=== PATIENT | female | born 1995 | race Caucasian/White ===

== ENCOUNTER → 2020-11-19 | Outpatient (REF) ==
[2020-11-20 06:11] LABS: RUBEOLA IgG ANTIBODY 90.9 AU/mL (Immune >16.4)
== END ==
LOC: M LAB 09:36
PROVIDERS: ATTEND Nurse Practitioner Family
DX: Z00.00 Encounter for general adult medical examination without abnormal findings (principal)

== ENCOUNTER 2021-04-29 17:45 | Inpatient (IN) | payer OTHER, SELFPAY ==
[~2021-04-29] VITALS: Ht 172.7 cm; Wt 78.5 kg
[2021-04-29] MEDS ORDERED: NS 1,000 ML IV ONE ×2 (17:50→19:50)
[2021-04-29] MEDS ORDERED: ONDANSETRON 4MG/2ML VIAL IV ONE ×2 (18:05→21:55)
--- NOTE | 2021-04-29 18:16 | REP ---
INDICATION: DKA COMPARISON: None. TECHNIQUE: Portable AP view of the chest FINDINGS: The mediastinum and cardiac silhouette are within normal limits for portable technique. The lung melendrez are clear without acute consolidation, effusion, or pneumothorax. Skeletal structures are intact. IMPRESSION: No acute cardiopulmonary process appreciated. <Electronically signed by Sebastian Valle > 04/29/21 [id number]
[2021-04-29 18:27] LABS: BASO % 0.2 % (0.0-1.0); EOS % 0.2 % (0.0-3.0); HEMATOCRIT 45.6 % (36.0-47.0); HEMOGLOBIN 15.1 g/dl (12.0-15.5); LYMPH # 0.7 10^3/uL (1.5-5.0); LYMPH % 5.7 % (24.0-44.0); MEAN CORPUSCULAR HEMOGLOBIN 30.1 pg (27.0-33.0); MEAN CORPUSCULAR HGB CONC 33.1 g/dl (32.0-36.5); MONO # 0.6 10^3/uL (0.0-0.8); MONO % 5.2 % (2.0-8.0); NEUTROPHILS # 10.8 10^3/uL (1.5-8.5); NEUTROPHILS % 88.2 % (36.0-66.0); PLATELET COUNT, AUTOMATED 239 10^3/uL (150-450); RED BLOOD COUNT 5.01 10^6/uL (4.00-5.40); WHITE BLOOD COUNT 12.2 10^3/uL (4.0-10.0)
[2021-04-29 18:53] LABS: AMPHETAMINES LEVEL URINE NEGATIVE (NEGATIVE); BARBITURATES URINE NEGATIVE (NEGATIVE); BENZODIAZEPINES URINE POSITIVE (NEGATIVE); CANNABINOIDS URINE NEGATIVE (NEGATIVE); COCAINE METABOLITE URINE NEGATIVE (NEGATIVE); METHADONE URINE NEGATIVE (NEGATIVE); OPIATES URINE NEGATIVE (NEGATIVE); PHENCYCLIDINE URINE NEGATIVE (NEGATIVE)
[2021-04-29 19:02] LABS: HEMOGLOBIN A1c 10.2 %
--- NOTE | 2021-04-29 19:07 | ECGEPIP ---
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
[2021-04-29 19:48] LABS: OSMOLALITY SERUM 295 MOSM/KG (275-295)
[2021-04-29] MEDS ORDERED: METOCLOPRAMIDE INJ 10MG/2ML VIAL (J2765 PER 1) IV ONE (19:50)
[2021-04-29 21:28] LABS: ALT/SGPT 17 U/L (12-78)
[2021-04-29 21:29] LABS: ALBUMIN 3.7 GM/DL (3.2-5.2); BILIRUBIN,DIRECT 0.1 MG/DL (0.0-0.2); BILIRUBIN,TOTAL 0.4 MG/DL (0.2-1.0); CK-MB VALUE MASS < 1.0 NG/ML (<3.6); CPK CREATINE PHOSPHOKINASE 43 U/L (26-192); ETHYL ALCOHOL (ETHANOL) < 0.003 % (0.000-0.010); LIPASE 32 U/L (73-393); MAGNESIUM LEVEL 1.6 MG/DL (1.8-2.4); MB/CK RELATIVE INDEX 2.33 (< OR =4); TROPONIN I < 0.02 NG/ML (< 0.10)
[2021-04-29 21:43] LABS: ACETONE/KETONE 5.74 MG/DL (<2.81)
[2021-04-29] MEDS ORDERED: PROMETHAZINE INJ 25 MG/ML VIAL (J2550) IV ONE (22:20)
--- NOTE | 2021-04-29 23:49 | HPEPDOC ---
[facility] Medical History & Physical Date of Admission Apr 29, 2021 Date of Service: Apr 29, 2021 History and Physical CHIEF COMPLAINT: Nausea and vomiting HISTORY OF PRESENT ILLNESS: 26-year-old female history of type 1 diabetes chief complaint is nausea and vomiting. Patient tells me that she been having lots of nausea vomiting and diarrhea all day and she believes she might have eaten something bad she lives with her son who is asymptomatic. She called her friend while she was on the toilet telling her she needs to come to the hospital and she tells me that by the time EMS arrived she was found unresponsive on the ground it was unclear EMS felt she had seizure-like activity administered Versed and became apneic when this all had resolved by the time she arrived in the emergency department. At the time that I saw her she was awake and alert and able to answer all my questions appropriately. She denies history of seizures in the past tells me that her sister has a history of pseudoseizures. 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 Patient endorses that prior to passing out to the floor she felt lightheaded as though she's going to pass out which is why she called her friend to call EMS. She was given Zofran, Reglan, Phenergan in the emergency department for nausea and vomiting with some relief. Patient will be admitted for IV fluid hydration and medical management. On review of systems she endorses mild abdominal pain which is improved now. She denies any fevers or chills. Denies any trouble breathing or shortness of breath. Denies any palpitations or chest pain. Denies dysuria or urinary dale quency. PAST MEDICAL/SURGICAL HISTORY: Type 1 diabetes Mouth skin graft relating to braces SOCIAL HISTORY: Denies alcohol use Denies tobacco use Denies illicit drug use FAMILY HISTORY: Reviewed and none contributory to this admission ALLERGIES: Please see below. REVIEW OF SYSTEMS: 10 point review of systems complete all negative otherwise stated in HPI HOME MEDICATIONS: Please see below. PHYSICAL EXAMINATION: Constitutional: Awake and alert, in no apparent distress ENT: Sclera are clear. Mucosa is moist. Respiratory: Lungs CTA bilaterally. No respiratory distress. No use of accesso ry muscles. Cardiovascular: RRR S1 and S2 are normal, no murmur Gastrointestinal: Abdomen is soft, non distended, non tender, BS present. Musculoskeletal: No lower extremity edema. Neurologic: No focal neurological deficit. Mental Status: A&O x3, normal affect Skin: No visible rashes LABORATORY DATA: See below. IMAGING: See chart MICROBIOLOGY: Please see below. ASSESSMENT/PLAN 26-year-old female history of type 1 diabetes chief complaint is nausea and vomiting and diarrhea Patient will be admitted for IV fluid hydration and medical management. # intractable N/V/D: possibly gastroenteritis vs relating to uncontrolled blood sugar. GI panel. Scheduled Reglan IV. Zofran IV PRN. IVF NS @200. # DM1: Uncontrolled. +ketones urine. AG slightly increased. pH on vBG 7.47 on arrival. Requested ED ordered repeat ABG. ISS. Frequent Accu-Cheks. Hypoglycemic precautions. Resume Home dose levemir 32U BID and up-titrate as needed. # seizure like activity: suspected by EMS. No hx of seizures. No seizure like activity since being at hospital. less likely seizures, her episode of syncope sounds more like a vasovagal event on the toilet. Fu EEG. # UTI: denies dysuria. UA weakly positive. UCx pending. Will empirically treat with Rocephin until UCx results are back. She does have some leukocytosis. # Hypomagnesemia: relating to n/v. Replace. repeat Mg level. # DVT prophylaxis: Lovenox A Alfonsosef Hospitalist Vital Signs Vital Signs Date Time Temp Pulse Resp B/P (MAP) Pulse Ox O2 Delivery O2 Flow Rate FiO2 04/29/21 22:30 100 18 106/57 (73) 99 Nasal Cannula 2.0 04/29/21 20:24 98.0 Laboratory Data Labs 24H Laboratory Tests 2 04/29/21 18:01: Bedside Glucose (Misc Panel) 101 04/29/21 18:04: POC pH (Misc Panel) 7.479H, POC Base Excess (Misc Panel) -3.0L, POC Saturated Percent O2 (Misc) 100H, POC pO2 (Misc Panel) 170.0H, POC pCO2 (Misc Panel) 27.7L, POC HCO3 (Misc Panel) 20.6L, POC Total CO2 (Misc Panel) 21.0L 04/29/21 18:11: Immature Granulocyte % (Auto) 0.5, Neutrophils (%) (Auto) 88.2H, Lymphocytes (%) (Auto) 5.7L, Monocytes (%) (Auto) 5.2, Eosinophils (%) (Auto) 0.2, Basophils (%) (Auto) 0.2, Neutrophils # (Auto) 10.8H, Lymphocytes # (Auto) 0.7L, Monocytes # (Auto) 0.6, Eosinophils # (Auto) 0.0, Basophils # (Auto) 0.0, Nucleated Red Blood Cells % (auto) 0.0, Estimated Mean Plasma Glucose 246H, Hemoglobin A1c 10.2 04/29/21 18:15: POC Total CO2 (Misc Panel) 23.0, POC Glucose (Misc Panel) 117H, POC Sodium (Misc Panel) 143, POC Potassium (Misc Panel) 4.9, POC Chloride (Misc Panel) 106, POC Blood Urea Nitrogen (Misc Panel 25, POC Ionized Calcium (Misc Panel) 4.1L, POC Creatinine (Misc Panel) 0.3L, POC Hematocrit (Misc Panel) 46.0 04/29/21 18:20: Urine Color YELLOW, Urine Appearance CLOUDYH, Urine pH 5.0, Urine Specific [place] 1.027, Urine Protein 2+H, Urine Glucose (UA) NEGATIVE, Urine Ketones 2+H, Urine Blood NEGATIVE, Urine Nitrite NEGATIVE, Urine Bilirubin NEGATIVE, Urine Urobilinogen 0.2, Urine Leukocyte Esterase TRACEH, Urine WBC (Auto) 9H, Urine RBC (Auto) 0, Urine Hyaline Casts (Auto) 0, Urine Bacteria (Auto) NEGATIVE, Urine Squamous Epithelial Cells 5, Urine Mucus (Auto) LARGE, Urine Sperm (Auto) , Urine Opiates Screen NEGATIVE, Urine Methadone Screen NEGATIVE, Urine Barbiturates Screen NEGATIVE, Urine Phencyclidine Screen NEGATIVE, Urine Amphetamines Screen NEGATIVE, Urine Benzodiazepines Screen POSITIVEH, Urine Cocaine Metabolite Screen NEGATIVE, Urine Cannabinoids Screen NEGATIVE 04/29/21 18:22: POC Beta HCG, Quantitative < 5.0 04/29/21 19:07: Bedside Glucose (Misc Panel) 100 04/29/21 19:25: Osmolality 295, Phosphorus Level 3.0, Magnesium Level 1.6L, Total Bilirubin 0.4, Direct Bilirubin 0.1, Aspartate Amino Transf (AST/SGOT) 8, Alanine Aminotransferase (ALT/SGPT) 17, Alkaline Phosphatase 76, Total Creatine Kinase 43, Creatine Kinase MB < 1.0, Creatine Kinase MB Relative Index 2.33, Troponin I < 0.02, Total Protein 7.0, Albumin 3.7, Albumin/Globulin Ratio 1.1L, Lipase 32L, Ethyl Alcohol Level < 0.003, B-Hydroxybutyrate 5.74H CBC/BMP Laboratory Tests 04/29/21 18:11 Microbiology Microbiology 04/29/21 Urine Culture, Received Pending Allergies Coded Allergies: No Known Allergies (Unverified , 04/29/21) ADAM RUTHERFORD MD Apr 29, 2021 23:49
[2021-04-29] MEDS ORDERED: GLUCOSE 4GM CHEW TABLET PO PRN (23:55)
[2021-04-29] MEDS ORDERED: GLUCAGON INJ 1MG VIAL SC PRN (23:55)
[2021-04-30] MEDS ORDERED: ONDANSETRON 4MG/2ML VIAL IV PRN ×2 (00:15→17:00)
[2021-04-30] MEDS: MAG SULF 1GM/100ML (MAG RUN) 1 GM in IV 1 EA IV SCH ×2 (00:23→03:00)
[2021-04-30 00:29] LABS: VENOUS BASE EXCESS -4.3 (-2.0-2.0); VENOUS HCO3 19.7 MEQ/L (23.0-27.0); VENOUS O2 SATURATION 98.6 % (60.0-80.0); VENOUS PARTIAL PRESSURE O2 133.9 mmHg (30.0-50.0); VENOUS PH 7.394 UNITS (7.330-7.430); VENOUS TOTAL CO2 20.7 MEQ/L (24.0-28.0)
[2021-04-30] MEDS: NS 1,000 ML IV SCH ×4 (00:39→14:32)
[2021-04-30 01:08] LABS: RSV AMPLIFICATION NEGATIVE (NEGATIVE)
[2021-04-30] MEDS ORDERED: INSULADS SC (01:51)
[2021-04-30] MEDS ORDERED: HOME MED LIST COMPLETE! XX SCH (01:55)
[2021-04-30 02:30] VITALS: BP 106/58
[2021-04-30] MEDS: METOCLOPRAMIDE INJ 10MG/2ML VIAL (J2765 PER 1) IV SCH ×3 (03:00→14:33)
[2021-04-30 04:00] VITALS: BP 111/55
[2021-04-30] MEDS: cefTRIAXone SOD 1 GM in D5W MINI-BAG PLUS 50 ML IV SCH (04:00)
[2021-04-30] MEDS: ACETAMINOPHEN TAB 650MG DOSE (2X325MG) PO PRN ×2 (04:55→22:02)
[2021-04-30 05:02] LABS: HEMATOCRIT 38.5 % (36.0-47.0); MEAN CORPUSCULAR HEMOGLOBIN 30.3 pg (27.0-33.0); MEAN CORPUSCULAR HGB CONC 33.2 g/dl (32.0-36.5); PLATELET COUNT, AUTOMATED 187 10^3/uL (150-450); RED BLOOD COUNT 4.23 10^6/uL (4.00-5.40); WHITE BLOOD COUNT 3.8 10^3/uL (4.0-10.0)
[2021-04-30 05:07] LABS: HEMOGLOBIN 12.8 g/dl (12.0-15.5)
[2021-04-30 05:17] LABS: ALBUMIN 2.8 GM/DL (3.2-5.2); ALT/SGPT 18 U/L (12-78); BILIRUBIN,TOTAL 0.3 MG/DL (0.2-1.0); BLOOD UREA NITROGEN 16 MG/DL (7-18); CALCIUM LEVEL 7.3 MG/DL (8.5-10.1); CARBON DIOXIDE LEVEL 23 MEQ/L (21-32); CHLORIDE LEVEL 111 MEQ/L (98-107); CREATININE FOR GFR 0.45 MG/DL (0.55-1.30); GLOMERULAR FILTRATION RATE > 60.0 (>60); GLUCOSE, FASTING 150 MG/DL (70-100); MAGNESIUM LEVEL 2.4 MG/DL (1.8-2.4); POTASSIUM SERUM 3.5 MEQ/L (3.5-5.1); SODIUM LEVEL 144 MEQ/L (136-145); TOTAL PROTEIN 5.4 GM/DL (6.4-8.2)
[2021-04-30 08:00] VITALS: BP 106/56
[2021-04-30] MEDS: HumaLOG INSULIN (NovoLOG) PER UNIT SC SCH ×4 (08:12→20:17)
[2021-04-30] MEDS: ENOXAPARIN 40MG/0.4ML SYRINGE (J1650 PER 10MG) SC SCH (08:12)
[2021-04-30] MEDS ORDERED: LEVEMIR (INSULIN DETEMIR) 1 UNITS/0.01ML SC SCH (09:00)
[2021-04-30 11:00] VITALS: BP 99/60
--- NOTE | 2021-04-30 11:06 | IPNPDOC ---
Subjective Date Seen The patient was seen on 04/30/21. Subjective Chief Complaint/HPI No further vomiting overnight but continues to feel nauseous. She did have another loose bowel movement this morning. Does complain of some vague abdominal pain Objective Physical Examination General Exam: Positive: Alert, Cooperative, No Acute Distress Eye Exam: Positive: PERRLA, Conjunctiva & lids normal, EOMI; Negative: Sclera icteric ENT Exam: Positive: Atraumatic, Mucous membr. moist/pink, Pharynx Normal Neck Exam: Positive: Supple; Negative: JVD, thyromegaly Chest Exam: Positive: Clear to auscultation, Normal air movement Heart Exam: Positive: Rate Normal, Regular Rhythm, Normal S1, Normal S2; Negative: Murmurs, Rubs Abdomen Exam: Positive: Normal bowel sounds, Soft, Tenderness (Periumbilical region); Negative: Hepatospenomegaly Extremity Exam: Positive: Normal pulses; Negative: Clubbing, Cyanosis, Edema Assessment /Plan Assessment 26-year-old female history of type 1 diabetes chief complaint is nausea and vomiting and diarrhea. Patient was not in DKA. Her symptoms were thought to be related to gastroenteritis and she was admitted for IV fluids and symptom control. Intractable N/V/D: Likely gastroenteritis GI panel pending Continue IV fluid, Zofran, Reglan DM1 from the age of 12 years uncontrolled. A1c 10.2 No DKA though has ketonuria We will continue carb consistent diet and Levemir and lispro Episode of syncope at home while she was having a bowel movement as well as throwing up at the same time Vasovagal syncope As EMS noticed some seizure-like activity patient has been ordered an EEG which will get done while she is in the hospital Dirty UA with some dysuria Given ceftriaxone empirically will discontinue if urine cultures are negative Hypomagnesemia Replace Plan/VTE VTE Prophylaxis Ordered?: Yes VS, I&O, 24H, Fishbone Vital Signs/I&O Vital Signs Date Time Temp Pulse Resp B/P (MAP) Pulse Ox O2 Delivery O2 Flow Rate FiO2 04/30/21 08:00 97.2 91 14 106/56 (73) 96 Room Air 04/30/21 01:58 2.0 Laboratory Data 24H LABS Laboratory Tests 2 04/29/21 18:01: Bedside Glucose (Misc Panel) 101 04/29/21 18:04: POC pH (Misc Panel) 7.479H, POC Base Excess (Misc Panel) -3.0L, POC Saturated Percent O2 (Misc) 100H, POC pO2 (Misc Panel) 170.0H, POC pCO2 (Misc Panel) 27.7L, POC HCO3 (Misc Panel) 20.6L, POC Total CO2 (Misc Panel) 21.0L 04/29/21 18:11: Immature Granulocyte % (Auto) 0.5, Neutrophils (%) (Auto) 88.2H, Lymphocytes (%) (Auto) 5.7L, Monocytes (%) (Auto) 5.2, Eosinophils (%) (Auto) 0.2, Basophils (%) (Auto) 0.2, Neutrophils # (Auto) 10.8H, Lymphocytes # (Auto) 0.7L, Monocytes # (Auto) 0.6, Eosinophils # (Auto) 0.0, Basophils # (Auto) 0.0, Nucleated Red Blood Cells % (auto) 0.0, Estimated Mean Plasma Glucose 246H, Hemoglobin A1c 10.2 04/29/21 18:15: POC Total CO2 (Misc Panel) 23.0, POC Glucose (Misc Panel) 117H, POC Sodium (Misc Panel) 143, POC Potassium (Misc Panel) 4.9, POC Chloride (Misc Panel) 106, POC Blood Urea Nitrogen (Misc Panel 25, POC Ionized Calcium (Misc Panel) 4.1L, POC Creatinine (Misc Panel) 0.3L, POC Hematocrit (Misc Panel) 46.0 04/29/21 18:20: Urine Color YELLOW, Urine Appearance CLOUDYH, Urine pH 5.0, Urine Specific [place] 1.027, Urine Protein 2+H, Urine Glucose (UA) NEGATIVE, Urine Ketones 2+H, Urine Blood NEGATIVE, Urine Nitrite NEGATIVE, Urine Bilirubin NEGATIVE, Urine Urobilinogen 0.2, Urine Leukocyte Esterase TRACEH, Urine WBC (Auto) 9H, Urine RBC (Auto) 0, Urine Hyaline Casts (Auto) 0, Urine Bacteria (Auto) NEGATIVE, Urine Squamous Epithelial Cells 5, Urine Mucus (Auto) LARGE, Urine Sperm (Auto) , Urine Opiates Screen NEGATIVE, Urine Methadone Screen NEGATIVE, Urine Barbiturates Screen NEGATIVE, Urine Phencyclidine Screen NEGATIVE, Urine Amphetamines Screen NEGATIVE, Urine Benzodiazepines Screen POSITIVEH, Urine Cocaine Metabolite Screen NEGATIVE, Urine Cannabinoids Screen NEGATIVE 04/29/21 18:22: POC Beta HCG, Quantitative < 5.0 04/29/21 19:07: Bedside Glucose (Misc Panel) 100 04/29/21 19:25: Osmolality 295, Phosphorus Level 3.0, Magnesium Level 1.6L, Total Bilirubin 0.4, Direct Bilirubin 0.1, Aspartate Amino Transf (AST/SGOT) 8, Alanine Aminotransferase (ALT/SGPT) 17, Alkaline Phosphatase 76, Total Creatine Kinase 43, Creatine Kinase MB < 1.0, Creatine Kinase MB Relative Index 2.33, Troponin I < 0.02, Total Protein 7.0, Albumin 3.7, Albumin/Globulin Ratio 1.1L, Lipase 32L, Ethyl Alcohol Level < 0.003, B-Hydroxybutyrate 5.74H 04/30/21 00:10: Coronavirus (COVID-19)(PCR) NEGATIVE, Influenza Type A (RT-PCR) NEGATIVE, Influenza Type B (RT-PCR) NEGATIVE, Respiratory Syncytial Virus (PCR) NEGATIVE 04/30/21 00:13: Blood Gas Bicarbonate Standard 21.0, Venous Blood pH 7.394, Venous Blood Partial Pressure CO2 33.0L, Venous Blood Partial Pressure O2 133.9H, Venous Blood Total Carbon Dioxide 20.7L, Venous Blood HCO3 19.7L, Venous Blood Oxygen Saturation 98.6H, Venous Blood Base Excess -4.3L 04/30/21 04:20: Nucleated Red Blood Cells % (auto) 0.0, Anion Gap 10, Glomerular Filtration Rate > 60.0, Calcium Level 7.3L, Magnesium Level 2.4, Total Bilirubin 0.3, Aspartate Amino Transf (AST/SGOT) 10, Alanine Aminotransferase (ALT/SGPT) 18, Alkaline Phosphatase 51, Total Protein 5.4#L, Albumin 2.8#L, Albumin/Globulin Ratio 1.1L CBC/BMP Laboratory Tests 04/29/21 18:11 04/30/21 04:20 Microbiology Microbiology 04/29/21 Urine Culture, Received Pending Erma Balderrama MD Apr 30, 2021 11:06
[2021-04-30 14:00] VITALS: BP 112/61
[2021-04-30] MEDS ORDERED: METOCLOPRAMIDE INJ 10MG/2ML VIAL (J2765 PER 1) IV PRN (16:55)
[2021-04-30] MEDS: DEXTROSE 50% 50 ML SYRINGE IV PRN ×2 (17:50→18:02)
[2021-04-30] MEDS: D5W/0.9% SODIUM CHLORIDE 1,000 ML IV SCH (18:25)
--- NOTE | 2021-04-30 19:28 | ECGEPIP ---
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
[2021-04-30 22:00] VITALS: BP 103/60
[2021-05-01] MEDS: D5W/0.9% SODIUM CHLORIDE 1,000 ML IV SCH ×2 (01:08→08:44)
[2021-05-01] MEDS: cefTRIAXone SOD 1 GM in D5W MINI-BAG PLUS 50 ML IV SCH (01:10)
[2021-05-01] MEDS ORDERED: POTASSIUM CHLORIDE 10 MEQ SR TABLET PO ONE (02:00)
[2021-05-01 06:00] VITALS: BP 106/73
[2021-05-01 06:21] LABS: BASO % 0.6 % (0.0-1.0); EOS # 0.1 10^3/uL (0.0-0.5); EOS % 1.5 % (0.0-3.0); HEMATOCRIT 34.8 % (36.0-47.0); HEMOGLOBIN 11.1 g/dl (12.0-15.5); LYMPH # 1.3 10^3/uL (1.5-5.0); LYMPH % 40.9 % (24.0-44.0); MEAN CORPUSCULAR HEMOGLOBIN 29.6 pg (27.0-33.0); MEAN CORPUSCULAR HGB CONC 31.9 g/dl (32.0-36.5); MEAN CORPUSCULAR VOLUME 92.8 fl (80.0-96.0); MONO # 0.4 10^3/uL (0.0-0.8); MONO % 12.5 % (2.0-8.0); NEUTROPHILS # 1.5 10^3/uL (1.5-8.5); NEUTROPHILS % 44.2 % (36.0-66.0); PLATELET COUNT, AUTOMATED 153 10^3/uL (150-450); RED BLOOD COUNT 3.75 10^6/uL (4.00-5.40); WHITE BLOOD COUNT 3.3 10^3/uL (4.0-10.0)
[2021-05-01] MEDS: HumaLOG INSULIN (NovoLOG) PER UNIT SC SCH ×4 (07:30→20:41)
[2021-05-01] MEDS ORDERED: LEVEMIR (INSULIN DETEMIR) 1 UNITS/0.01ML SC SCH ×2 (09:00)
[2021-05-01 09:42] LABS: BLOOD UREA NITROGEN 7 MG/DL (7-18); CARBON DIOXIDE LEVEL 21 MEQ/L (21-32); CHLORIDE LEVEL 120 MEQ/L (98-107); CREATININE FOR GFR 0.48 MG/DL (0.55-1.30); GLOMERULAR FILTRATION RATE > 60.0 (>60); GLUCOSE, FASTING 243 MG/DL (70-100); SODIUM LEVEL 146 MEQ/L (136-145)
[2021-05-01 09:43] LABS: CALCIUM LEVEL 7.4 MG/DL (8.5-10.1); MAGNESIUM LEVEL 1.9 MG/DL (1.8-2.4)
[2021-05-01] MEDS: ENOXAPARIN 40MG/0.4ML SYRINGE (J1650 PER 10MG) SC SCH (10:15)
--- NOTE | 2021-05-01 10:47 | IPNPDOC ---
Subjective Date Seen The patient was seen on 05/01/21. Subjective Chief Complaint/HPI Continues to have watery diarrhea, reports that she feels very weak and tired stop had an episode of hypoglycemia yesterday evening but no further episodes of hypoglycemia this morning her sugars were 43. Denies any further nausea or vomiting. Objective Physical Examination General Exam: Positive: Alert, Cooperative, No Acute Distress Eye Exam: Positive: PERRLA, Conjunctiva & lids normal, EOMI; Negative: Sclera icteric ENT Exam: Positive: Atraumatic, Mucous membr. moist/pink, Pharynx Normal Neck Exam: Positive: Supple; Negative: JVD, thyromegaly Chest Exam: Positive: Clear to auscultation, Normal air movement Heart Exam: Positive: Rate Normal, Regular Rhythm, Normal S1, Normal S2; Negative: Murmurs, Rubs Abdomen Exam: Positive: Normal bowel sounds, Soft, Tenderness (Periumbilical region); Negative: Hepatospenomegaly Extremity Exam: Positive: Normal pulses; Negative: Clubbing, Cyanosis, Edema Assessment /Plan Assessment 26-year-old female history of type 1 diabetes chief complaint is nausea and vomiting and diarrhea. Patient was not in DKA. Her symptoms were thought to be related to gastroenteritis and she was admitted for IV fluids and symptom control. Gastroenteritis Enteropathogenic E. coli and norovirus gastroenteritis Continue IV fluid, Zofran, Reglan DM1 from the age of 12 years uncontrolled. A1c 10.2 No DKA though has ketonuria Had an episode of hypoglycemia on 04/30/2021 We will continue carb consistent diet and Levemir lower dose and lispro Episode of syncope at home while she was having a bowel movement as well as throwing up at the same time Vasovagal syncope As EMS noticed some seizure-like activity patient has been ordered an EEG which will get done while she is in the hospital Dirty UA with some dysuria Urine culture negative Ceftriaxone stopped Hypomagnesemia Replaced Plan/VTE VTE Prophylaxis Ordered?: Yes VS, I&O, 24H, Fishbone Vital Signs/I&O Vital Signs Date Time Temp Pulse Resp B/P (MAP) Pulse Ox O2 Delivery O2 Flow Rate FiO2 05/01/21 06:00 97.8 81 17 106/73 (84) 98 Room Air 04/30/21 01:58 2.0 I&O- Last 24 Hours up to 6 AM 05/01/21 06:00 Intake Total 3050 ml Output Total 0 ml Balance 3050 ml Laboratory Data 24H LABS Laboratory Tests 2 04/30/21 11:34: Bedside Glucose (Misc Panel) 107H 04/30/21 13:18: Bedside Glucose (Misc Panel) 74 04/30/21 16:47: Bedside Glucose (Misc Panel) 56L 04/30/21 17:41: Bedside Glucose (Misc Panel) 51L 04/30/21 18:24: Bedside Glucose (Misc Panel) 166H 04/30/21 21:49: Bedside Glucose (Misc Panel) 164H 05/01/21 01:26: Bedside Glucose (Misc Panel) 185H 05/01/21 06:06: Immature Granulocyte % (Auto) 0.3, Neutrophils (%) (Auto) 44.2, Lymphocytes (%) (Auto) 40.9, Monocytes (%) (Auto) 12.5H, Eosinophils (%) (Auto) 1.5, Basophils (%) (Auto) 0.6, Neutrophils # (Auto) 1.5, Lymphocytes # (Auto) 1.3L, Monocytes # (Auto) 0.4, Eosinophils # (Auto) 0.1, Basophils # (Auto) 0.0, Nucleated Red Blood Cells % (auto) 0.0, Anion Gap 5L, Glomerular Filtration Rate > 60.0, Calcium Level 7.4L, Whole Blood Ionized Calcium 4.3L, Magnesium Level 1.9 CBC/BMP Laboratory Tests 05/01/21 06:06 Microbiology Microbiology 04/30/21 Gastrointestinal Tract Panel (PCR) - Final, Complete Enteropathogenic E.coli Norovirus 04/29/21 Urine Culture - Final, Complete Erma Balderrama MD May 01, 2021 10:47
[2021-05-01] MEDS: NS 1,000 ML IV SCH ×2 (11:55→23:02)
[2021-05-01 14:00] VITALS: BP 111/74
[2021-05-01] MEDS: ACETAMINOPHEN TAB 650MG DOSE (2X325MG) PO PRN (20:41)
[2021-05-01 22:00] VITALS: BP 112/73
[2021-05-02 06:30] LABS: HEMATOCRIT 36.8 % (36.0-47.0); HEMOGLOBIN 12.1 g/dl (12.0-15.5); MEAN CORPUSCULAR HEMOGLOBIN 30.2 pg (27.0-33.0); MEAN CORPUSCULAR HGB CONC 32.9 g/dl (32.0-36.5); MEAN CORPUSCULAR VOLUME 91.8 fl (80.0-96.0); PLATELET COUNT, AUTOMATED 172 10^3/uL (150-450); RED BLOOD COUNT 4.01 10^6/uL (4.00-5.40); WHITE BLOOD COUNT 3.7 10^3/uL (4.0-10.0)
[2021-05-02 06:48] LABS: BLOOD UREA NITROGEN 5 MG/DL (7-18); CALCIUM LEVEL 8.1 MG/DL (8.5-10.1); CARBON DIOXIDE LEVEL 22 MEQ/L (21-32); CHLORIDE LEVEL 116 MEQ/L (98-107); CREATININE FOR GFR 0.48 MG/DL (0.55-1.30); GLOMERULAR FILTRATION RATE > 60.0 (>60); GLUCOSE, FASTING 279 MG/DL (70-100); MAGNESIUM LEVEL 1.7 MG/DL (1.8-2.4); POTASSIUM SERUM 4.1 MEQ/L (3.5-5.1); SODIUM LEVEL 145 MEQ/L (136-145)
[2021-05-02 06:53] VITALS: BP 128/83
[2021-05-02 07:24] LABS: ATYPICAL LYMPH 6 % (0-5); BASOPHILS 1 % (0-1); LYMPHOCYTES 48 % (16-44); MONOCYTES 7 % (0-5); NEUTROPHILS 36 % (28-66); PLATELET ESTIMATE NORMAL (NORMAL)
[2021-05-02] MEDS ORDERED: HumaLOG INSULIN (NovoLOG) PER UNIT SC SCH (07:30)
[2021-05-02] MEDS: ENOXAPARIN 40MG/0.4ML SYRINGE (J1650 PER 10MG) SC SCH (08:07)
[2021-05-02] MEDS ORDERED: LEVEMIR (INSULIN DETEMIR) 1 UNITS/0.01ML SC SCH (09:00)
--- NOTE | 2021-05-02 09:47 | DS.PDOC ---
Discharge Summary General Date of Admission Apr 29, 2021 at 17:46 Date of Discharge 05/02/21 Discharge Summary PROCEDURES PERFORMED DURING STAY: [None]. DISCHARGE DIAGNOSES: Gastroenteritis due to Norovirus and Enteropathogenic E coli Dehydration vasovagal syncope hypomagnesemia episode of hypoglycemia Type 1 DM COMPLICATIONS/CHIEF COMPLAINT: Intactable Vomiting, Ketonuria. HOSPITAL COURSE: 26-year-old female history of type 1 diabetes chief complaint is nausea and vomiting and diarrhea. Patient was not in DKA. Her symptoms were thought to be related to gastroenteritis and she was admitted for IV fluids and symptom control. Gastroenteritis Enteropathogenic E. coli and norovirus gastroenteritis symptoms now resolved. DM1 from the age of 12 years uncontrolled. A1c 10.2 No DKA though has ketonuria Had an episode of hypoglycemia on 04/30/2021 We will continue carb consistent diet and Levemir and lispro Episode of syncope at home while she was having a bowel movement as well as throwing up at the same time Vasovagal syncope Dirty UA with some dysuria Urine culture negative Ceftriaxone stopped Hypomagnesemia Replaced DISCHARGE MEDICATIONS: Please see below. ALLERGIES: Please see below. PHYSICAL EXAMINATION ON DISCHARGE: VITAL SIGNS: Please see below. General Exam: Positive: Alert, Cooperative, No Acute Distress Eye Exam: Positive: PERRLA, Conjunctiva & lids normal, EOMI; Negative: Sclera icteric ENT Exam: Positive: Atraumatic, Mucous membr. moist/pink, Pharynx Normal Neck Exam: Positive: Supple; Negative: JVD, thyromegaly Chest Exam: Positive: Clear to auscultation, Normal air movement Heart Exam: Positive: Rate Normal, Regular Rhythm, Normal S1, Normal S2; Negative: Murmurs, Rubs Abdomen Exam: Positive: Normal bowel sounds, Soft, Tenderness (Periumbilical region); Negative: Hepatosplenomegaly Extremity Exam: Positive: Normal pulses; Negative: Clubbing, Cyanosis, Edema LABORATORY DATA: Please see below. ACTIVITY: [As tolerated]. DIET: Low residue DISCHARGE PLAN: Home DISCHARGE INSTRUCTIONS: PMD in 1 week DISCHARGE CONDITION: [Stable]. TIME SPENT ON DISCHARGE: 35 minutes. Vital Signs/I&Os Vital Signs Date Time Temp Pulse Resp B/P (MAP) Pulse Ox O2 Delivery O2 Flow Rate FiO2 05/02/21 06:53 97.8 77 20 128/83 (98) 98 Room Air 04/30/21 01:58 2.0 I&O- Last 24 Hours up to 6 AM 05/02/21 06:00 Intake Total 1605 ml Balance 1605 ml Laboratory Data Labs 24H Laboratory Tests 2 05/01/21 11:27: Bedside Glucose (Misc Panel) 232H 05/01/21 17:07: Bedside Glucose (Misc Panel) 60L 05/01/21 17:47: Bedside Glucose (Misc Panel) 80 05/01/21 20:32: Bedside Glucose (Misc Panel) 151H 05/02/21 06:10: Neutrophils (%) (Auto) , Nucleated Red Blood Cells % (auto) 0.0, Neutrophils 36, Band Neutrophils 2, Lymphocytes (Manual) 48H, Monocytes (Manual) 7H, Basophils (Manual) 1, Atypical Lymphocytes 6H, Platelet Estimate NORMAL, Anion Gap 7L, Glomerular Filtration Rate > 60.0, Calcium Level 8.1L, Magnesium Level 1.7L CBC/BMP Laboratory Tests 05/02/21 06:10 FSBS Laboratory Tests Test 05/01/21 11:27 05/01/21 17:07 05/01/21 17:47 05/01/21 20:32 Range/Units Bedside Glucose (Misc Panel) 232 60 80 151 70-105 MG/DL Microbiology Microbiology 04/30/21 Gastrointestinal Tract Panel (PCR) - Final, Complete Enteropathogenic E.coli Norovirus 04/29/21 Urine Culture - Final, Complete Discharge Medications Scheduled Insulin Glargine (Lantus) 100 Unit/1 Ml Vial, 32 UNIT SC BID, (Reported) Allergies Coded Allergies: No Known Allergies (Unverified , 04/29/21) Erma Balderrama MD May 02, 2021 09:47
[2021-05-03 09:46] LABS: VITAMIN B12 LEVEL 267 PG/ML
[2021-05-03 09:48] LABS: FOLATE 9.4 NG/ML
== END 2021-05-02 10:19 | disposition home or self-care (01) | DRG 392 ==
LOC: EDBD 17:45 → M ED 17:45 → M ED INP 17:46 → M PCU 04-30 02:30 → M MSPAV 04-30 11:00
PROVIDERS: ADMIT Family Medicine; ATTEND Internal Medicine Nephrology
DX: K52.9 Noninfective gastroenteritis and colitis, unspecified (principal); N39.0 Urinary tract infection, site not specified; E83.42 Hypomagnesemia; A04.0 Enteropathogenic Escherichia coli infection; E86.0 Dehydration; G40.909 Epilepsy, unspecified, not intractable, without status epilepticus; Z20.822 Contact with and (suspected) exposure to COVID-19; Z79.4 Long term (current) use of insulin; E10.649 Type 1 diabetes mellitus with hypoglycemia without coma

== ENCOUNTER 2021-11-11 16:57 | Inpatient (IN) | payer OTHER ==
[~2021-11-11] VITALS: Ht 162.6 cm; Wt 77.3 kg
[~2021-11-11 16:57] MED LIST: INSULADS SC
[2021-11-11] MEDS ORDERED: ONDANSETRON 4MG/2ML VIAL IV ONE (17:30)
[2021-11-11 18:14] LABS: VENOUS BASE EXCESS -1.1 (-2.0-2.0); VENOUS HCO3 25.2 MEQ/L (23.0-27.0); VENOUS O2 SATURATION 69.8 % (60.0-80.0); VENOUS PARTIAL PRESSURE O2 37.6 mmHg (30.0-50.0); VENOUS PH 7.338 UNITS (7.330-7.430); VENOUS STANDARD HCO3 22.8 MEQ/L; VENOUS TOTAL CO2 26.7 MEQ/L (24.0-28.0)
[2021-11-11 18:22] LABS: BASO % 0.2 % (0.0-1.0); EOS % 0.2 % (0.0-3.0); HEMATOCRIT 42.8 % (36.0-47.0); HEMOGLOBIN 14.2 g/dl (12.0-15.5); LYMPH # 0.8 10^3/uL (1.5-5.0); LYMPH % 6.6 % (24.0-44.0); MEAN CORPUSCULAR HEMOGLOBIN 29.2 pg (27.0-33.0); MEAN CORPUSCULAR HGB CONC 33.2 g/dl (32.0-36.5); MEAN CORPUSCULAR VOLUME 88.1 fl (80.0-96.0); MONO # 0.5 10^3/uL (0.0-0.8); MONO % 4.1 % (2.0-8.0); NEUTROPHILS # 10.8 10^3/uL (1.5-8.5); NEUTROPHILS % 88.5 % (36.0-66.0); PLATELET COUNT, AUTOMATED 238 10^3/uL (150-450); RED BLOOD COUNT 4.86 10^6/uL (4.00-5.40); WHITE BLOOD COUNT 12.2 10^3/uL (4.0-10.0)
[2021-11-11 18:58] LABS: OSMOLALITY SERUM 293 MOSM/KG (275-295)
[2021-11-11 19:00] LABS: ACETAMINOPHEN LEVEL < 2.0 UG/ML (10.0-30.0); ALBUMIN 3.9 GM/DL (3.2-5.2); ALT/SGPT 17 U/L (12-78); BILIRUBIN,DIRECT 0.1 MG/DL (0.0-0.2); BILIRUBIN,TOTAL 0.4 MG/DL (0.2-1.0); BLOOD UREA NITROGEN 16 MG/DL (7-18); CALCIUM LEVEL 8.9 MG/DL (8.5-10.1); CARBON DIOXIDE LEVEL 30 MEQ/L (21-32); CHLORIDE LEVEL 109 MEQ/L (98-107); CREATININE FOR GFR 0.66 MG/DL (0.55-1.30); ETHYL ALCOHOL (ETHANOL) 0.003 % (0.000-0.010); GLOMERULAR FILTRATION RATE > 60.0 (>60); GLUCOSE, FASTING 102 MG/DL (70-100); POTASSIUM SERUM 3.9 MEQ/L (3.5-5.1); SALICYLATE LEVEL < 1.7 MG/DL (5.0-30.0); SODIUM LEVEL 142 MEQ/L (136-145); TOTAL PROTEIN 7.5 GM/DL (6.4-8.2)
[2021-11-11] MEDS ORDERED: PROMETHAZINE INJ 25 MG/ML VIAL (J2550) IV ONE (19:20)
[2021-11-11 20:11] LABS: RSV AMPLIFICATION NEGATIVE (NEGATIVE)
[2021-11-11] MEDS ORDERED: HumaLOG INSULIN (NovoLOG) PER UNIT SC SCH (21:00)
[2021-11-11] MEDS ORDERED: MULTCHW12 PO (21:46)
[2021-11-11] MEDS ORDERED: INSUH10VL SC (21:46)
[2021-11-11] MEDS ORDERED: HOME MED LIST COMPLETE! XX SCH (21:50)
[2021-11-11] MEDS ORDERED: DEXTROSE 50% 50 ML SYRINGE IV PRN (23:00)
[2021-11-11] MEDS ORDERED: GLUCOSE 4GM CHEW TABLET PO PRN (23:00)
[2021-11-11] MEDS ORDERED: GLUCAGON INJ 1MG VIAL SC PRN (23:00)
[2021-11-11] MEDS ORDERED: PROMETHAZINE INJ 25 MG/ML VIAL (J2550) IV PRN (23:00)
[2021-11-12 00:04] VITALS: BP 132/76
[2021-11-12] MEDS ORDERED: ACETAMINOPHEN TAB 650MG DOSE (2X325MG) PO PRN (00:30)
[2021-11-12] MEDS: METOCLOPRAMIDE INJ 10MG/2ML VIAL (J2765 PER 1) IV SCH ×3 (00:51→10:41)
[2021-11-12] MEDS: NS 1,000 ML IV SCH ×2 (00:51→10:38)
[2021-11-12 05:42] VITALS: BP 129/76
[2021-11-12 05:57] LABS: HEMATOCRIT 40.4 % (36.0-47.0); HEMOGLOBIN 13.4 g/dl (12.0-15.5); MEAN CORPUSCULAR HEMOGLOBIN 29.3 pg (27.0-33.0); MEAN CORPUSCULAR HGB CONC 33.2 g/dl (32.0-36.5); MEAN CORPUSCULAR VOLUME 88.4 fl (80.0-96.0); PLATELET COUNT, AUTOMATED 216 10^3/uL (150-450); RED BLOOD COUNT 4.57 10^6/uL (4.00-5.40); WHITE BLOOD COUNT 6.7 10^3/uL (4.0-10.0)
[2021-11-12 06:25] LABS: BLOOD UREA NITROGEN 20 MG/DL (7-18); CALCIUM LEVEL 8.1 MG/DL (8.5-10.1); CARBON DIOXIDE LEVEL 26 MEQ/L (21-32); CHLORIDE LEVEL 109 MEQ/L (98-107); CREATININE FOR GFR 0.68 MG/DL (0.55-1.30); GLOMERULAR FILTRATION RATE > 60.0 (>60); GLUCOSE, FASTING 114 MG/DL (70-100); MAGNESIUM LEVEL 1.7 MG/DL (1.8-2.4); POTASSIUM SERUM 3.6 MEQ/L (3.5-5.1); SODIUM LEVEL 140 MEQ/L (136-145)
[2021-11-12] MEDS: HumaLOG INSULIN (NovoLOG) PER UNIT SC SCH ×2 (08:34→11:44)
[2021-11-12] MEDS ORDERED: LEVEMIR (INSULIN DETEMIR) 1 UNITS/0.01ML SC SCH (09:00)
[2021-11-12] MEDS ORDERED: ENOXAPARIN 40MG/0.4ML SYRINGE (J1650 PER 10MG) SC SCH (09:00)
[2021-11-12] MEDS ORDERED: INSULADS SC ×2 (14:26→16:06)
[2021-11-12] MEDS ORDERED: MAGNESIUM OXIDE 400MG TAB (MAG-OX) PO ONE (14:30)
== END 2021-11-12 16:40 | disposition home or self-care (01) | DRG 312 ==
LOC: M ED 16:57 → M ED INP 21:56 → M MSPAV 23:38
PROVIDERS: ADMIT Family Medicine; ATTEND Internal Medicine
DX: R55 Syncope and collapse (principal); I47.1 Supraventricular tachycardia; E10.9 Type 1 diabetes mellitus without complications; K52.9 Noninfective gastroenteritis and colitis, unspecified; R50.9 Fever, unspecified; Z79.4 Long term (current) use of insulin; Z20.822 Contact with and (suspected) exposure to COVID-19

== ENCOUNTER → 2022-07-13 | Outpatient (REF) | payer OTHER ==
[~2022-07-13] MED LIST changes: +INSUH10VL SC; +MULTCHW12 PO
[2022-07-13 18:10] LABS: MALB URINE SIEMENS 12.3 MG/L; MAU/CREAT RATIO 8.9 MCG/MG (0.0-30.0)
== END ==
LOC: M LAB REF 16:53
PROVIDERS: ATTEND Nurse Practitioner Family
DX: E10.65 Type 1 diabetes mellitus with hyperglycemia (principal)